=== PATIENT | female | born 1990 ===

== ENCOUNTER 2016-09-26 12:10 | Emergency (ER) | payer BC ==
--- NOTE | 2016-09-26 18:23 | UC ---
javon Duff Timothy, scribed for Nasima Mccormack MD on 09/26/16 at 1414 . Skin Complaint HPI - HPI Summary HPI Summary: Chastity Coulter is a 26 yo female presenting to [facility] with bug bites to her left foot approximately 2 week ago. She states her Sx orginally faded, but in the past 3- 4 days they have re-emerged. She claims that Sx are very localized. Pt has a boyfriend who she lives with with no Sx. She has a cat, but the cat is an indoor cat. Pt states the area continues to itch, and has had swelling. Pt has self-medicated with benadryl and itching creams, with some relief of both itching and swelling Sx. She denies any PMHx or allergies. - History of Current Complaint Chief Complaint: UCSkin Time Seen by Provider: 09/26/16 14:07 Stated Complaint: BUG BITES,SWELLING Hx Obtained From: Patient Hx Last Menstrual Period: jul. 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 Negative: Red Streaks , Joint Swelling Related History: Insect Bite/Sting - Allergy/Home Medications Allergies/Adverse Reactions: Allergies Allergy/AdvReac Type Severity Reaction Status Date / Time No Known Allergies Allergy Verified 09/26/16 13:17 Review of Systems Constitutional: Negative Skin: Other - itching and swelling of the left foot. Eyes: Negative ENT: Negative, Dental Pain Respiratory: Negative Cardiovascular: Negative Gastrointestinal: Negative Genitourinary: Negative Motor: Negative Neurovascular: Negative Musculoskeletal: Negative Neurological: Negative Psychological: Negative All Other Systems Reviewed And Are Negative: Yes PMH/Surg Hx/FS Hx/Imm Hx Previously Healthy: Yes - Surgical History Surgical History: None - Family History Known Family History: Positive: Hypertension, Other - [place] - Social History Occupation: Employed Full-time Alcohol Use: Rare Substance Use Type: None Smoking Status (MU): Never Smoked Tobacco Physical Exam Triage Information Reviewed: Yes Appearance: No Pain Distress, Well-Nourished, Ill-Appearing Vital Signs: Initial Vital Signs Temp 97.9 F 09/26/16 13:18 Pulse 77 09/26/16 13:18 Resp 16 09/26/16 13:18 BP 135/77 09/26/16 13:18 Pulse Ox 99 09/26/16 13:18 Vital Signs Reviewed: Yes Eyes: Positive: Conjunctiva Clear ENT: Positive: Hearing grossly normal. Negative: Muffled/hoarse voice Neck: Positive: Supple, Nontender Respiratory: Positive: Lungs clear, Normal breath sounds, No respiratory distress Cardiovascular: Positive: RRR, No Murmur, Pulses Normal, Brisk Capillary Refill Musculoskeletal: Positive: Strength Intact, ROM Intact Neurological: Positive: Alert, Muscle Tone Normal Psychological: Positive: Age Appropriate Behavior Skin: Positive: Other - multiple erythematous, swollen maculopapular regions on the left foot to mid left calf with no purulence or red streaks. There is uniform swelling of the left foot, with no restriction of movement. Course/Dx - Course Course Of Treatment: Chastity Coulter is a 26 yo female presenting to [facility] with bug bites to her left foot approximately 2 weeks ago, with itching and swelling that has gotten worse in the past 3-4 days. She was advised of possible diagnoses of flea bites or bed bugs, as well as associated treatments. After clinical examination, she will be discharged home with infected insect bites and cellulitis with appropriate Rx and information. Due to her slightly elevated blood pressure, she was counseled to present to her primary care doctor for a check on her blood pressure in the next month. - Differential Diagnoses - Skin Complaint Differential Diagnoses: Cellulitis, Other - bed bugs, flea - Diagnoses Provider Diagnoses: infected insect bites, cellulitis, elevated blood pressure without diagnosis of HTN Discharge - Discharge Plan Condition: Stable Disposition: HOME Prescriptions: Cephalexin CAP* [Keflex 500 CAP*] 500 mg PO QID #40 cap predniSONE TAB* [Deltasone TAB*] 40 mg PO DAILY #10 tab Patient Education Materials: Insect Bite or Sting (ED), Cellulitis (ED), Hypertension (ED) Forms: *Work Release Referrals: No Primary Care Phys,NOPCP [Primary Care Provider] - Nikki Bowie MD [Medical Doctor] - 2 Days Additional Instructions: Please take your medication as prescribed and do your best to keep your left foot elevated. Please follow up with a primary care physician regarding your visit to urgent care today. Please have your blood pressure checked within the next month or so as it was slightly elevated today, as discussed in the room. Return to urgent care or the emergency department with any worsening of your symptoms or if you notice any shortness of breath, fever, weakness, or any other symptoms. The documentation as recorded by the javon wylie Timothy accurately reflects the service I personally performed and the decisions made by , Nasima Mccormack MD.
== END 2016-09-26 14:33 | disposition home or self-care (01) ==
LOC: UCEAST 12:10
DX: S90.862A Insect bite (nonvenomous), left foot, initial encounter (principal); L03.116 Cellulitis of left lower limb; W57.XXXA Bitten or stung by nonvenomous insect and other nonvenomous arthropods, initial encounter; Y93.9 Activity, unspecified; Y92.9 Unspecified place or not applicable; R03.0 Elevated blood-pressure reading, without diagnosis of hypertension
CPT/HCPCS: 99202; G0463